=== PATIENT | male | born 1980 | race Caucasian/White ===

== ENCOUNTER 2017-05-01 12:06 | Emergency (ER) | payer SELFPAY ==
[~2017-05-01] VITALS: Ht 172.7 cm; Wt 73.5 kg
[2017-05-01 12:32] VITALS: Ht 172.7 cm; Wt 73.5 kg
[2017-05-01 14:45] VITALS: BP 122/75
== END 2017-05-01 14:45 | disposition home or self-care (01) ==
LOC: ED 12:06
DX: S42.002A Fracture of unspecified part of left clavicle, initial encounter for closed fracture (principal); S62.201A Unspecified fracture of first metacarpal bone, right hand, initial encounter for closed fracture; S00.01XA Abrasion of scalp, initial encounter; L02.01 Cutaneous abscess of face; V29.9XXA Motorcycle rider (driver) (passenger) injured in unspecified traffic accident, initial encounter; Y93.79 Activity, other specified sports and athletics; Y92.89 Other specified places as the place of occurrence of the external cause; Y99.8 Other external cause status
CPT/HCPCS: J1885